=== PATIENT | male | born 1960 | race Caucasian/White ===

== ENCOUNTER 2021-10-20 13:48 | Inpatient (IN) | payer MEDICAID ==
[~2021-10-20] VITALS: Ht 188 cm; Wt 82.1 kg
--- NOTE | 2021-10-20 13:56 | NUR ---
TO ER BED 11, MARY RA860 "Homeless was found sleeping on the ground near bus stop, C/O FOOT PAIN, AAOX3, BREATHING EVEN AND NON LABORED, CONNECTED TO MONITOR, AWAITING MD ORDERS
[2021-10-20] MEDS ORDERED: IV NS 0.9% 1,000 ML BAG IV ONE (14:30)
[2021-10-20 14:48] LABS: BASOPHILS % (AUTO) 1.2 % (0.0-2.0); EOSINOPHILS % (AUTO) 3.1 % (0.0-6.0); HEMATOCRIT 27 % (39-51); HEMOGLOBIN 9.3 g/dL (13.5-17.5); LYMPHOCYTES # (AUTO) 0.5 K/uL (0.8-4.8); LYMPHOCYTES % (AUTO) 12.1 % (20.0-44.0); MEAN CORPUSCULAR HGB CONC 34 g/dl (31.0-36.0); MEAN CORPUSCULAR VOLUME 88 fL (80-96); MONOCYTES # (AUTO) 0.5 K/uL (0.1-1.30); MONOCYTES % (AUTO) 12.2 % (2.0-12.0); NEUTROPHILS # (AUTO) 2.7 K/uL (1.8-8.9); NEUTROPHILS % (AUTO) 71.4 % (43.0-81.0); PLATELET COUNT (AUTO) 433 K/uL (150-450); RED BLOOD CELL COUNT(AUTO) 3.06 MIL/uL (4.5-6.0); WHITE BLOOD COUNT (AUTO) 3.8 K/uL (4.3-11.0)
--- NOTE | 2021-10-20 14:50 | NUR ---
TAKEN TO CT
[2021-10-20 15:15] LABS: CALCIUM, SERUM 9.2 mg/dL (8.5-10.1); POTASSIUM 3.2 mmol/L (3.5-5.1)
[2021-10-20 15:30] LABS: ALBUMIN 2.8 g/dL (3.4-5.0); BILIRUBIN,DIRECT 0.1 mg/dL (0.0-0.2); BILIRUBIN,TOTAL 0.2 mg/dL (0.2-1.0); TOTAL PROTEIN, SERUM 8.8 g/dL (6.4-8.2)
[2021-10-20] MEDS ORDERED: CANCER MED (16:02)
--- NOTE | 2021-10-20 16:15 | NUR ---
COVID ANTIGEN AND PCR SWABS DONE AND SENT TO LAB
[2021-10-20] MEDS ORDERED: CEFTRIAXONE 1 G in IV D5W 50 ML IV ONE (16:30)
--- NOTE | 2021-10-20 17:23 | NUR ---
STILL UNABLE TO PROVIDE URINE AT THIS TIME
[2021-10-20] MEDS ORDERED: ONDANSETRON HCL/PF 4 MG/2 ML VIAL IVP PRN (17:30)
[2021-10-20] MEDS ORDERED: ACETAMINOPHEN 325 MG TABLET PO PRN (17:30)
[2021-10-20] MEDS ORDERED: ENOXAPARIN SODIUM 40 MG/0.4 ML DISP.SYRIN SQ SCH (17:30)
[2021-10-20] MEDS ORDERED: MAG HYDROX/AL HYDROX/SIMETH 30 ML UDC PO PRN (17:30)
[2021-10-20] MEDS ORDERED: HYDROCODONE/APAP 5/325MG TABLET PO PRN (17:30)
[2021-10-20] MEDS ORDERED: HYDROCODONE/APAP 10/325MG TABLET PO PRN (17:30)
[2021-10-20] MEDS ORDERED: TEMAZEPAM 15 MG CAPSULE PO PRN (17:30)
[2021-10-20] MEDS ORDERED: MAGNESIUM HYDROXIDE 30 ML UDC PO PRN (17:30)
[2021-10-20] MEDS ORDERED: PSYLLIUM SEED 1 PKT PACKET PO ONE (18:00)
--- NOTE | 2021-10-20 18:18 | NUR ---
ULTRASOUND AT BEDSIDE
--- NOTE | 2021-10-20 18:41 | NUR ---
UNABLE TO PROVIDE URINE AT THIS TIME STILL, DR SANTOS AWARE
[2021-10-20] MEDS ORDERED: CEFEPIME 1 GM in IV D5W 50 ML IV SCH (21:00)
[2021-10-20] MEDS ORDERED: Z GUARD REMEDY 4 OZ OINT TP PRN (21:00)
[2021-10-20] MEDS ORDERED: ENOXAPARIN SODIUM 40 MG/0.4 ML DISP.SYRIN SQ ONE (21:10)
[2021-10-20] MEDS ORDERED: DOXYCYCLINE HYCLATE (100 MG) 100 MG TABLET ONE (21:10)
[2021-10-20] MEDS: DOXYCYCLINE HYCLATE (100 MG) 100 MG TABLET PO SCH (21:20)
[2021-10-20] MEDS: CEFEPIME 2 GM in IV D5W 100 ML IV SCH (21:20)
[2021-10-21 04:48] LABS: BASOPHILS % (AUTO) 0.9 % (0.0-2.0); EOSINOPHILS % (AUTO) 2.5 % (0.0-6.0); HEMATOCRIT 27 % (39-51); HEMOGLOBIN 9.2 g/dL (13.5-17.5); LYMPHOCYTES # (AUTO) 0.5 K/uL (0.8-4.8); LYMPHOCYTES % (AUTO) 14.4 % (20.0-44.0); MEAN CORPUSCULAR HGB CONC 34 g/dl (31.0-36.0); MEAN CORPUSCULAR VOLUME 89 fL (80-96); MONOCYTES # (AUTO) 0.6 K/uL (0.1-1.30); MONOCYTES % (AUTO) 16.9 % (2.0-12.0); NEUTROPHILS # (AUTO) 2.3 K/uL (1.8-8.9); NEUTROPHILS % (AUTO) 65.3 % (43.0-81.0); PLATELET COUNT (AUTO) 384 K/uL (150-450); RED BLOOD CELL COUNT(AUTO) 3.02 MIL/uL (4.5-6.0); WHITE BLOOD COUNT (AUTO) 3.5 K/uL (4.3-11.0)
[2021-10-21] MEDS ORDERED: CEFTRIAXONE 1GM BAG (ER ONLY) 0 ML IV ONE (04:50)
[2021-10-21 05:08] LABS: CALCIUM, SERUM 8.4 mg/dL (8.5-10.1); CREATININE 1.1 mg/dL (0.6-1.3); MAGNESIUM 1.6 mg/dL (1.8-2.4); PHOSPHORUS 3.3 mg/dL (2.5-4.9); POTASSIUM 3.5 mmol/L (3.5-5.1)
[2021-10-21 05:23] LABS: THYROID STIMULATING HORMONE 0.537 uIU/mL (0.358-3.74)
[2021-10-21] MEDS: CEFEPIME 2 GM in IV D5W 100 ML IV SCH ×2 (05:31→13:00)
[2021-10-21 06:45] LABS: EOSINOPHILS % (MANUAL) 7 % (0-4); LYMPHOCYTES % (MANUAL) 6 % (16-48); MONOCYTES % (MANUAL) 23 % (0-11.0); NEUTROPHILS % (MANUAL) 64 (42-76)
--- NOTE | 2021-10-21 07:27 | NUR ---
RECEIVED REPORT FROM ZAHRA JOHNSON FOR PRECIOUS. PT ASLEEP ON BED EASILY AROUSABLE, NOT IN RESPIRATORY DISTRESS, V/S STABLE, KEPT RESTED AND COMFORTABLE. WILL CONTINUE TO MONITOR.
[2021-10-21] MEDS ORDERED: MAGNESIUM OXIDE 400 MG TABLET PO ONE (09:00)
[2021-10-21] MEDS ORDERED: DOCUSATE SODIUM 100 MG CAPSULE PO ONE (09:05)
[2021-10-21] MEDS ORDERED: MAGNESIUM OXIDE 400 MG TABLET ONE (09:05)
[2021-10-21] MEDS ORDERED: DOXYCYCLINE HYCLATE (100 MG) 100 MG TABLET ONE (09:05)
[2021-10-21] MEDS: DOXYCYCLINE HYCLATE (100 MG) 100 MG TABLET PO SCH (09:08)
[2021-10-21] MEDS: DOCUSATE SODIUM 100 MG CAPSULE PO SCH (09:08)
--- NOTE | 2021-10-21 09:14 | NUR ---
Nat peña in [facility] - 10/21/21 at 0915 by [place] [id number]
[2021-10-21] MEDS ORDERED: HYDROCODONE/APAP 5/325MG TABLET ONE (09:48)
--- NOTE | 2021-10-21 15:31 | NUR ---
REPORT GIVEN TO ZAHRA JAIN FOR PRECIOUS.
--- NOTE | 2021-10-21 16:10 | NUR ---
SS consult requested for homelessness. SW will follow up at a later time.
[2021-10-21 16:16] VITALS: BP 145/82
[2021-10-21 16:56] VITALS: BP 145/82
--- NOTE | 2021-10-21 17:07 | NUR ---
RN NOTES RECEIVED PATIENT IN BED. A/O X4 ABLE TO VERBALIZE NEEDS. NO SIGNS OF DISTRESS OR CHEST DISCOMFORT. BREATHING EXPANSION IS SYMMETRICAL. PATIENT ON ROOM AIR SATING AT 97%. PATIENT IS NOTED WITH RIGHT HAND #18G PERIPHERAL IV SALINE LOCK. ADMITTING BLOOD PRESSURE IS 127/71, HEART RATE 74, 17 RESPIRATIONS PER MINUTE AND 97% O2 SAT. ALL SAFETY AND ISOLATION PRECAUTIONS OBSERVED. BED IN LOWEST POSITION AND LOCKED. WILL CONTINUE TO MONITOR.
--- NOTE | 2021-10-21 18:30 | NUR ---
RN CLOSING NOTES PATIENT REMAINED IN BED FOR THE REST OF THE SHIFT. REPORTS AND SHOWS NO SIGNS OF PAIN OR DISTRESS. NO SOB AND NO CHEST DISCOMFORT. PATIENT IS ABLE TO VERBALIZE NEEDS AND RETURN DEMONSTRATES HOW TO USE CALL LIGHT IF NEEDS ARISE. NO SIGNIFICANT CHANGES IN VITAL SIGNS AND LOC. ALL SAFETY PRECAUTIONS OBSERVED. TWO SIDE RAILS RAISED, BED IN LOWEST POSITION AND LOCKED. WILL ENDORSE TO ADMITTING MANAGER NURSE.
--- NOTE | 2021-10-21 19:10 | NUR ---
RN NOTES RECEIVED REPORT FROM MORNING RN. PATIENT IN BED A/O X4 ABLE TO MAKE NEEDS KNOWN. ON ROOM AIR SATING 99%. WITH R ARM # 18 SALINE LOCKED FLUSHES WELL. VITAL SIGNS TAKEN AND RECORDED AFEBRILE. BED ON LOWEST POSITION AND LOCKED. HOB ELEVATED. CALL LIGHT WITHIN REACH. BED ON LOWEST POSITION AND LOCKED. WILL CONTINUE TO MONITOR.
[2021-10-21 20:00] VITALS: BP 150/78
[2021-10-21] MEDS: ENOXAPARIN SODIUM 40 MG/0.4 ML DISP.SYRIN SQ SCH (21:07)
[2021-10-22 04:00] VITALS: BP 134/96
--- NOTE | 2021-10-22 06:57 | NUR ---
RN NOTES PATIENT REMAINS STABLE THE WHOLE SHIFT NO SIGNIFICANT CHANGES IN HEALTH CONDITION. ALL DUE MEDS GIVEN ORDERED. STILL ON ROOM AIR SATING 97%. ALL NEEDS ATTENDED PROMPTLY. ALL SAFETY MEASURES IN PLACE AT ALL TIMES. CALL LIGHT WITHIN REACH. BED ON LOWEST POSITION AND LOCKED. WILL ENDORSED TO INCOMING RN FOR PRECIOUS.
--- NOTE | 2021-10-22 07:33 | NUR ---
RN NOTES RECEIVED PATIENT IN BED, A/O X4 ABLE TO MAKE NEEDS KNOWN. ON ROOM AIR SATING @99%. WITH R ARM #18G SALINE LOCKED FLUSHES WELL. VITAL SIGNS TAKEN AND RECORDED AFEBRILE. BED ON LOWEST POSITION AND LOCKED. HOB ELEVATED. CALL LIGHT WITHIN REACH. BED ON LOWEST POSITION AND LOCKED. WILL CONTINUE TO MONITOR.
[2021-10-22] MEDS: DOCUSATE SODIUM 100 MG CAPSULE PO SCH (09:00)
[2021-10-22 12:00] VITALS: BP 139/74
[2021-10-22] MEDS: oxyCODONE IR immediate release 5 MG PO PRN ×3 (13:15→23:35)
--- NOTE | 2021-10-22 18:16 | NUR ---
RN CLOSING NOTES PATIENT REMAINED STABLE THROUGHOUT THE SHIFT. REPORTS AND SHOWS NO SIGNS OF PAIN OR DISTRESS. NO SOB AND NO CHEST DISCOMFORT. PATIENT IS ABLE TO VERBALIZE NEEDS AND RETURN DEMONSTRATES HOW TO USE CALL LIGHT IF NEEDS ARISE. NO SIGNIFICANT CHANGES IN VITAL SIGNS AND LOC. ALL SAFETY MEASURES OBSERVED. TWO SIDE RAILS RAISED, BED IN LOWEST POSITION AND LOCKED. WILL ENDORSE TO SCRAP CRUSHER NURSE.
--- NOTE | 2021-10-22 19:05 | NUR ---
RN NOTES RECEIVED REPORT FROM MORNING RN. PATIENT A/O X4 ABLE TO MAKE NEEDS KNOWN. ON ROOM AIR TOLERATING WELL SATING 98%. WITH IV ACCESS R ARM # 18 SL. PATENT FLUSHES WELL. VITAL SIGNS TAKEN AND RECORDED AFEBRILE. ALL SAFETY MEASURES IN PLACE AT ALL TIMES. HOB ELEVATED. CALL LIGHT WITHIN REACH. BED ON LOWEST POSITION AND LOCKED. WILL CONTINUE TO MONITOR.
[2021-10-22 20:00] VITALS: BP 137/78
[2021-10-22] MEDS: ENOXAPARIN SODIUM 40 MG/0.4 ML DISP.SYRIN SQ SCH (21:35)
[2021-10-23 04:00] VITALS: BP 150/66
[2021-10-23] MEDS: oxyCODONE IR immediate release 5 MG PO PRN ×3 (04:03→17:25)
--- NOTE | 2021-10-23 06:45 | NUR ---
RN NOTES PATIENT REMAINS IN STABLE CONDITION NO SIGNIFICANT CHANGES IN HEALTH CONDITION. ALL DUE MEDS GIVEN ORDERED. ALL SAFETY MEASURES IN PLACE AT ALL TIMES. HOB ELEVATED, CALL LIGHT WITHIN REACH. ALL NEEDS ATTENDED PROMPTLY. BED ON LOWEST POSITION AND LOCKED. ENDORSED TO INCOMING SHIFT FOR PRECIOUS
--- NOTE | 2021-10-23 07:20 | NUR ---
RN OPENING NOTES RECEIVED PATIENT IN BED, SLEEPING EASILY AROUSABLE. A/O X4 ABLE TO MAKE NEEDS KNOWN. NO SOB OR ANY ACUTE DISTRESS NOTED. ON ROOM AIR SATING 98%. WITH R ARM #18G SALINE LOCKED PATENT AND INTACT, FLUSHES WELL. NO SIGNS OF INFILTRATIONS. ALL APPLICABLE ISOLATION PRECAUTIONS IN PLACE. ALL SAFETY MEASURES IN PLACE. BED ON LOWEST POSITION AND LOCKED. HOB ELEVATED. CALL LIGHT WITHIN REACH. WILL CONTINUE TO MONITOR PATIENT ACCORDINGLY.
[2021-10-23 08:00] LABS: EOSINOPHILS % (AUTO) 4.1 % (0.0-6.0); HEMATOCRIT 30 % (39-51); HEMOGLOBIN 9.8 g/dL (13.5-17.5); LYMPHOCYTES # (AUTO) 0.6 K/uL (0.8-4.8); LYMPHOCYTES % (AUTO) 19.6 % (20.0-44.0); MEAN CORPUSCULAR HGB CONC 33 g/dl (31.0-36.0); MEAN CORPUSCULAR VOLUME 88 fL (80-96); MONOCYTES # (AUTO) 0.6 K/uL (0.1-1.30); MONOCYTES % (AUTO) 21.6 % (2.0-12.0); NEUTROPHILS # (AUTO) 1.6 K/uL (1.8-8.9); NEUTROPHILS % (AUTO) 53.7 % (43.0-81.0); PLATELET COUNT (AUTO) 408 K/uL (150-450); RED BLOOD CELL COUNT(AUTO) 3.36 MIL/uL (4.5-6.0); WHITE BLOOD COUNT (AUTO) 2.9 K/uL (4.3-11.0)
[2021-10-23] MEDS: DOCUSATE SODIUM 100 MG CAPSULE PO SCH (08:21)
[2021-10-23 08:22] LABS: CALCIUM, SERUM 9.3 mg/dL (8.5-10.1); MAGNESIUM 1.8 mg/dL (1.8-2.4); PHOSPHORUS 3.5 mg/dL (2.5-4.9); POTASSIUM 4.1 mmol/L (3.5-5.1)
[2021-10-23 12:00] VITALS: BP 152/77
--- NOTE | 2021-10-23 19:38 | NUR ---
RN OPENING NOTES RECEIVED PATIENT IN BED, AWAKE, A/O X4 AND VERBALLY RESPONSIVE. ON ROOM AIR AND PT TOLERATED WELL. NO SOB OR ANY ACUTE DISTRESS. IV ACCESS ON RT HAND INTACT AND PATENT. NO S/S OF INFILTRATIONS. N O C/O PAIN OR DISCOMFORT. NO ACUTE DISTRESS. ON ISOLATION PRECAUTIONS. ALL SAFETY MEASURES IN PLACE. BED ON LOWEST POSITION AND LOCKED. PLACE CALL LIGHT WITHIN REACH. WILL CONTINUE TO MONITOR.
--- NOTE | 2021-10-23 19:45 | NUR ---
RN CLOSING NOTES PATIENT REMAINED STABLE THROUGHOUT THE SHIFT. BREATHING EVEN AND UNLABORED. NO SOB OR ANY ACUTE DISTRESS NOTED. PATIENT ON ROOM AIR TOLERATING WELL. IV ACCESS ON RIGHT HAND PATENT AND INTACT. ALL MEDICATIONS GIVEN ORDERED. KEPT PATIENT CLEAN, DRY AND COMFORTABLE. ALL APPLICABLE ISOLATION PRECAUTIONS MAINTAINED. ALL SAFETY MEASURES OBSERVED THROUGHOUT THE SHIFT. BED IN LOWEST POSITION AND LOCKED, SIDE RAILS UP. CALL LIGHT WITHIN REACH OF PATIENT. ENDORSED TO ONCOMING NURSE FOR PRECIOUS.
[2021-10-23 20:00] VITALS: BP 134/71
[2021-10-23] MEDS: ENOXAPARIN SODIUM 40 MG/0.4 ML DISP.SYRIN SQ SCH (20:49)
[2021-10-24 04:00] VITALS: BP 152/69
[2021-10-24 06:06] LABS: BASOPHILS % (AUTO) 0.9 % (0.0-2.0); EOSINOPHILS % (AUTO) 4.6 % (0.0-6.0); HEMATOCRIT 28 % (39-51); HEMOGLOBIN 9.6 g/dL (13.5-17.5); LYMPHOCYTES # (AUTO) 0.6 K/uL (0.8-4.8); MEAN CORPUSCULAR HGB CONC 35 g/dl (31.0-36.0); MEAN CORPUSCULAR VOLUME 88 fL (80-96); MONOCYTES # (AUTO) 0.7 K/uL (0.1-1.30); MONOCYTES % (AUTO) 25.3 % (2.0-12.0); NEUTROPHILS # (AUTO) 1.3 K/uL (1.8-8.9); NEUTROPHILS % (AUTO) 48.2 % (43.0-81.0); PLATELET COUNT (AUTO) 404 K/uL (150-450); RED BLOOD CELL COUNT(AUTO) 3.12 MIL/uL (4.5-6.0); WHITE BLOOD COUNT (AUTO) 2.8 K/uL (4.3-11.0)
--- NOTE | 2021-10-24 06:33 | NUR ---
RN CLOSING NOTES PATIENT IN BED, AWAKE, A/O X4 AND VERBALLY RESPONSIVE. ON ROOM AIR, O2 SAT 95% AND PT TOLERATED WELL. NO SOB, NO CHEST CONGESTION, BREATHING EVEN AND UNLABORED. IV ACCESS ON RT HAND INTACT AND PATENT. NO S/S OF INFILTRATIONS. N O C/O PAIN OR DISCOMFORT. NO ACUTE DISTRESS. ON ISOLATION PRECAUTIONS. ALL SAFETY MEASURES IN PLACE. BED ON LOWEST POSITION AND LOCKED, SIDE RAILS UP X 3, PLACE CALL LIGHT WITHIN REACH. WILL ENDORSE TO MORNING SHIFT NURSE.
--- NOTE | 2021-10-24 07:29 | NUR ---
RN OPENING NOTES RECEIVED PATIENT IN BED, AWAKE, A/O X4 AND VERBALLY RESPONSIVE. ON ROOM AIR AND PT TOLERATED WELL. NO SOB OR ANY ACUTE DISTRESS. IV ACCESS ON RT HAND INTACT AND PATENT. NO S/S OF INFILTRATIONS. N O C/O PAIN OR DISCOMFORT. NO ACUTE DISTRESS. ON ISOLATION PRECAUTIONS. ALL SAFETY MEASURES IN PLACE. BED ON LOWEST POSITION AND LOCKED, SIDE RAILS UP X 3, PLACE CALL LIGHT WITHIN REACH. WILL CONTINUE TO MONITOR.
[2021-10-24 07:57] LABS: CALCIUM, SERUM 9.3 mg/dL (8.5-10.1); CREATININE 1.2 mg/dL (0.6-1.3); MAGNESIUM 1.8 mg/dL (1.8-2.4); POTASSIUM 4.6 mmol/L (3.5-5.1)
[2021-10-24] MEDS: DOCUSATE SODIUM 100 MG CAPSULE PO SCH (08:24)
[2021-10-24] MEDS: oxyCODONE IR immediate release 5 MG PO PRN (09:42)
[2021-10-24 10:20] LABS: BAND % (MANUAL) 4 % (0.0-5.0); EOSINOPHILS % (MANUAL) 5 % (0-4); LYMPHOCYTES % (MANUAL) 21 % (16-48); MONOCYTES % (MANUAL) 15 % (0-11.0); NEUTROPHILS % (MANUAL) 55 (42-76)
[2021-10-24 12:00] VITALS: BP 154/80
--- NOTE | 2021-10-24 14:50 | NUR ---
"SS consult: SS consult requested for homelessness. Pt. is a 61-year-old male who is currently in the [facility] for COVID-19. Upon SS consult, pt. is alert and oriented x4. TEODORA conducted interview via phone due to COVID-19 diagnosis. Pt. presents with a dysphoric mood and was tangential thought process with pressured speech. TEODORA explored pt.s social support. Pt. stated that he has no social support. SW explored pt.s living situation. Pt. stated that he is currently homeless and has been for two years. SW placed homeless resources and waiver in the chart. Pt. is requesting placement. SW explored if he is willing to pay for B&c and pt. stated that he is not. SW explored if pt. is ambulatory. Pt. stated he is not ambulatory and uses a wheelchair. Pt. stated he is not independent with his ADLs. TEODORA explored pt.s financial situation. Pt. stated he receives 900 dollars a month from social security income. TEODORA explored pt.s substance use history. Pt. stated that he used to use crack and cocaine but has not in the last five years. Pt. stated he drinks occasionally. TEODORA explored pt.s psychiatric diagnosis. Pt. stated he is depressed and wants to be connect with a psychiatrist. SW offered mental health resources and placed them in the chart. Pt. denied current visual/auditory hallucinations. Pt. denied current suicidal/homicidal ideation. Plan: Upon discharge, pt. will go to a SNF or chcf. TEODORA will discuss with CM. TEODORA placed homeless resources and waiver in the pt.'s chart to be filled upon DC. Year-round shelters: [facility] [place] [address] [place] [address] ; [facility] [place] [address] [place] [address]; [facility] Cewyrnw[address] [facility] [address] Winter Shelters: SPA 2 | [facility] Eder: Amira Address: Confidential (call for location ) Population Served: Coed # of Beds: 57 SPA 4 | [facility] Provider: [facility] at Last Address: [address] [place] [address] # of Beds: 49 Population Served: Coed SPA 6 | [facility] Provider: [facility] Last Address: [address] [facility] [address] # of Beds: 49 Population Served: Coed [facility] Provider: Capo Otero [facility] Address: [address] [facility] [address] # of Beds: 20 Population Served: Women LUPE Facility Provider: Home at Last Address: [address] [address] # of Beds: 30 Population Served: Women SPA 8 | [facility] Library Provider: [place] Address: [address] [facility] [address] # of Beds: 65 Population Served: Coed Hygiene: [facility]: [address] [facility] ; [place] [facility] [address] [facility] ; [facility] [address] [facility] . Food Resources: [place] [facility] at [facility]- [address] [facility]; Meet Each Need with Dignity ([facility]) [address] [facility]; [facility] [address] [facility]; [facility] 5[address] [facility]. Mental Health resources provided: [facility] [address] [place] [address] ; [facility] [address] [facility] [address], [place] [address] ; Catia Krueger Count Includes [facility] [address] [place] [address] ; [facility] [address] [place], [place] [phone] Healthcare Clinics: [facility] [address] [facility], [address] [place]. [place] ; [facility] [address] [facility] [address] [place] [address]; [facility] [address] [facility] [phone]) [phone] Counseling--Outpatient [facility] [address], [place] [address] (Specializes in in-depth psychotherapy for emotional distress: anxiety, depression, interpersonal conflicts, life transitions, childhood abuse) [facility] [address] [place] [address] (Assist with solving problem marital difficulties, separation & divorce, aging parents, & grief, chronic & terminal illness) [facility] [address] [place] [address] (Deal with loss & grief, anxiety, marital difficulties) Homebound/Mental Health Services [address] [facility] [address] [place] [address] (Provide in-home mental services to people who are incapable of leaving their homes) [facility]eds of the Elderly Senior Service/Resource Center [address] [facility] [place] [address] [facility] [address] [place] [address] PSYCHIATRIC OUTPATIENT SERVICES [facility] Partial Hospitalization and Intensive Outpatient Program (Managed Care and [place] Only)[address] [facility]. [facility] [phone] [facility] Partial Hospitalization and Outpatient [id number] [facility] [address] [place], [place] [phone] [facility] [place] [id number] [facility] [address] [place], [place] [phone] [facility] Partial Hospitalization and Outpatient Awrxsff14454 [place], [phone] Substance Abuse resources provided included: [facility] Substance Abuse Self-Helpline ([facility]) ; [facility] [address] [facility]. [place] [phone] ; [facility] [place] [address] [facility] [address] ; [facility] Rehabilitation [facility] [address] [place]. [place] [phone] ; [facility] [address] [facility] [address] ; [facility] [address] [facility] [address] ; [facility] [address] [facility] [phone] ; [facility] Substance Abuse Helpline([facility] ; [facility] ; [facility] [place]; [facility] [place]; [facility] [place] Tan; [facility] [place]; [facility] [place]; [facility] [place]; [facility] [place]; Alcoholics Anonymous -SFV; Ob-[facility]-Mafddwv ; Marijuana Anonymous -[facility]; Narcotics Anonymous www.na.org;"
--- NOTE | 2021-10-24 17:47 | NUR ---
DC NOTES PT [facility]D TO [facility] IN STABLE CONDITION. DC INSTRUCTIONS GIVEN AND EXPLAINED TO PT. PT VERBALIZED UNDERSTANDING. ALL PAPERWORK SIGNED AND COMPLETED. ALL BELONGINGS SENT INCLUDING WHEELCHAIR. IV ACCESS REMOVED. NO COMPLICATIONS NOTED. PT LEFT UNIT IN STABLE CONDITION.
== END 2021-10-24 17:15 | disposition home or self-care (01) | DRG 143 ==
LOC: ER 14:48 → TRANSITION 18:25 → TELE1 10-21 10:23 → TRANSITION 10-21 10:42 → TELE1 10-21 15:20 → MEDSG1 10-21 16:01
PROVIDERS: ADMIT Nurse Practitioner Acute Care; ATTEND Nurse Practitioner Acute Care
DX: J98.11 Atelectasis (principal); E44.1 Mild protein-calorie malnutrition; D63.8 Anemia in other chronic diseases classified elsewhere; E88.09 Other disorders of plasma-protein metabolism, not elsewhere classified; E87.6 Hypokalemia; I10 Essential (primary) hypertension; Z59.00 Homelessness unspecified; Z85.9 Personal history of malignant neoplasm, unspecified; F17.210 Nicotine dependence, cigarettes, uncomplicated; E83.42 Hypomagnesemia; F12.90 Cannabis use, unspecified, uncomplicated; K59.00 Constipation, unspecified; Z87.81 Personal history of (healed) traumatic fracture; M19.90 Unspecified osteoarthritis, unspecified site; D72.819 Decreased white blood cell count, unspecified
CPT/HCPCS: 36415; 71045-TC; 80048-TC; 80076-TC; 83605-TC; 83690-TC; 83735-TC; 84100-TC; 84443-TC; 85025-TC; 86803; 87040-TC; 87081-TC; 87806; 93970-TC; 97112-TC; 97530-TC; C9803; G0378; G0480; J0692; J0696; J1650; J7030; J7060; U0003